=== PATIENT | female | born 1935 | race Caucasian/White ===

== ENCOUNTER 2017-08-29 14:36 | Observation (INO) | payer MEDICARE ==
--- NOTE | 2017-08-29 16:17 | RAD ---
PORTABLE CHEST: HISTORY: Vertigo. COMPARISON: 04/26/16. FINDINGS: Lungs appear clear. There are scattered calcified granuloma again noted. Heart size upper normal an d stable. Vascular markings within normal range. Evidence of COPD with mild hyperexpansion. IMPRESSION: No evidence of acute process. Stable chest findings from prior exam. POS: [facility]
[2017-08-29 16:29] LABS: Bilirubin Negative (Negative); Blood, Urine Negative (Negative); Glucose, Urine (Dipstick) Negative (Negative); Ketone, Urine Negative (Negative); Nitrite Negative (Negative); Protein, Urine (Dipstick) Negative (Neg-Trace); Urobilinogen 0.2 mg/dL (0.2-1.0)
[2017-08-29 16:30] LABS: #Eosinphils 0.1 thou/uL (0.0-0.7); #Lymphocytes 2.7 thou/uL (1.20-3.40); #Monocytes 0.6 thou/uL (0.11-0.59); #Neutrophils 4.5 thou/uL (1.40-6.50); %Basophils 0.4 % (0.0-1.0); %Eosinophils 1.5 % (0.0-10.0); %Lymphocytes 34.1 % (21.0-51.0); %Monocytes 7.1 % (0.0-10.0); Hematocrit 43.5 % (36.0-47.0); Mean Platelet Volume 7.3 fL (7.4-10.4); Red Blood Cell (RBC) Count 4.65 mill/uL (4.20-5.40); White Blood Cell (WBC) Count 7.8 thou/uL (4.8-10.8)
[2017-08-29 16:30] LABS: Bacteria/HPF None Seen HPF (None Seen); Hyaline Casts/LPF 0-3 HYALINE CAST LPF (0-3 Hyaline); RBC/HPF 0-3 HPF (0-3); Squamous Epithelial 0-3 HPF (0-3)
[2017-08-29 16:50] LABS: ALT (SGPT) 12 U/L (8-55); AST (SGOT) 20 U/L (5-34); Alkaline Phosphatase 73 U/L (40-150); Anion Gap 15 mmol/L (10-20); BUN (Urea Nitrogen) 18 mg/dL (9.8-20.1); Bilirubin, Total 0.5 mg/dL (0.2-1.2); CK (CPK) 34 U/L (29-168); Calc. Creatinine Clearance 0 mL/min (70-130); Calcium 9.7 mg/dL (7.8-10.44); Carbon Dioxide 27 mmol/L (23-31); Chloride 103 mmol/L (98-107); Estimated GFR-MDRD 65; Protein, Total 8.1 g/dL (6.0-8.3)
[2017-08-29 16:54] LABS: Troponin I Less than 0.010 ng/mL (< 0.028)
[2017-08-29] MEDS ORDERED: hydrALAZINE 20 MG/ML VIAL ONE (17:39)
--- NOTE | 2017-08-29 19:52 | CT ---
CT BRAIN 08/29/17 HISTORY: Severe vertigo. Noncontrast enhanced CT images of the brain is obtained. The brain is unremarkable. No evidence of intracranial masses, hemorrhages, strokes or acute contusio ns seen. An old area of stroke is seen in the left basal ganglia. No other significant acute intracra nial abnormality seen. 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 No acute intracranial abnormality seen. POS: [facility]
[2017-08-29] MEDS ORDERED: Ondansetron HCl/PF 4 MG/2 ML Vial IVP PRN (20:34)
[2017-08-29] MEDS ORDERED: Acetaminophen 325 MG TAB PO PRN (20:34)
[2017-08-29] MEDS ORDERED: Ondansetron ODT 4 MG TAB SL PRN (20:34)
[2017-08-29] MEDS ORDERED: Sodium Chloride 0.9% 1,000 ML IV SCH ×2 (20:45→22:15)
--- NOTE | 2017-08-29 21:10 | PDOC.EVN ---
Event Note - Event Note Event Note: 612209 H&P Dictated 1. Vertigo 2. Nausea and vomiting 3. Hypothyroidism plan: see orders
[2017-08-29 21:11] VITALS: BMI 35.6
[2017-08-29] MEDS ORDERED: Meclizine HCl 25 MG TAB PO PRN (22:11)
[2017-08-29 23:57] LABS: Troponin I Less than 0.010 ng/mL (< 0.028)
--- NOTE | 2017-08-30 06:07 | HP ---
DATE OF ADMISSION: 08/29/2017 CHIEF COMPLAINT: Dizziness. HISTORY OF PRESENT ILLNESS: Patient is an 82-year-old female with past medical history of hypothyroi dism, , complaining of dizziness, dizziness as if room spinning around. Patient's symptoms star rm all of sudden 3 days back. The patient said she was sleeping and she woke up to go to the restro om, she started feeling dizzy, possibly some nausea and vomiting also, denies any further nausea and vomiting, denies any chest pain, denies any troubled breathing, denies any weakness, complains of adrien e photophobia also. Denies any headache. Denies any lightheadedness. Dizziness is more like room s pinning around. PAST MEDICAL HISTORY: Hypothyroidism. PAST SURGICAL HISTORY: Appendectomy, eye surgery, tonsillectomy. SOCIAL HISTORY: Denies smoking, denies alcohol, denies any drugs. FAMILY HISTORY: Denies any heart problems. MEDICATIONS: Reviewed. REVIEW OF SYSTEMS: Constitutional: Denies any fever, denies any chills. Eyes: Denies any vision problems. Ears: Den ies any hearing loss. Neck: Denies any neck pain. Cardiovascular: Denies any chest pain, denies p alpitations. Respiratory: Denies any cough, denies sputum production. Gastrointestinal: Positive for nausea, vomiting. Musculoskeletal: Denies any joint deformities. Cranial nerve system: Positi ve for dizziness. Psychiatric: Denies anxiety. Integumentary: Denies any rash. Genitourinary: Denies dysuria. All other review of systems are reviewed and are negative. PHYSICAL EXAMINATION: CONSTITUTIONAL/VITAL SIGNS: At the time of H&P performed, blood pressure is stable, afebrile, respir ation rate 18. GENERAL: The patient appears comfortable. HEENT: Pupils equal, round, and reactive to light. Anterior nares patent. Nose normal. Ears albert l. Teeth intact. Tongue is moist. NECK: Supple. No JVD. CARDIOVASCULAR SYSTEM: S1, S2 present. Regular rate and rhythm, no murmurs, no rubs, no gallops. RESPIRATORY SYSTEM: No wheezing, no rhonchi. Breath sounds bilaterally. GASTROINTESTINAL: Abdomen is soft, nontender, no guarding, no organomegaly, no masses felt. MUSCULOSKELETAL: No edema. INTEGUMENTARY: No rashes seen. NEUROLOGIC: Cranial nerve system, able to perform alternate hand movements. Strength is intact, sen larry intact. Positive for decreased vision, which was chronic. PSYCHIATRIC: Mood is appropriate at this time. LABORATORY DATA: At the time of H&P performed white count 7.8, hemoglobin 14, platelet count is 285. BMP shows sodium 141, potassium 3.6, chloride 103, CO2 of 27, BUN of 18, creatinine 8.83, AST 20, A LT 12, alkaline phosphatase 73, troponin less than 0.010, globulin 4. EKG showed chest x-ray no obvi ous infiltrates seen. IMAGING: CT head, no obvious bleed, no acute process seen. ASSESSMENT AND PLAN: The patient is an 82-year-old female. 1. Vertigo, need to rule out any acute stroke. Plan to get MRI brain. Plan to consult Neurology to the patient. The patient had CT head done which showed old left basal ganglia stroke. We will get PT, OT also to evaluate the patient and we will monitor the patient. 2. History of hypertension. Continue Synthroid. 3. Nausea, vomiting, p.r.n. antiemetics. The case was discussed in detail with the patient and patient's daughter also.
[2017-08-30] MEDS ORDERED: FLU VACC TS2017-18 (>65YR) 0.5 ML SYRINGE IM ONE (09:00)
[2017-08-30] MEDS: Aspirin 81 mg Enteric Coated Tablet PO SCH (09:33)
[2017-08-30] MEDS: Heparin 5,000 UNITS/ML VIAL SC SCH ×2 (09:34→21:56)
--- NOTE | 2017-08-30 14:04 | PDOC.PN ---
- Subjective Encounter Start Date: 08/30/17 Encounter Start Time: 14:01 Subjective: feels better. no more dizziness -: no nausea/vomiting/chest pain/SOB -: refused MRI d/t claustrophobia - Objective MAR Reviewed: Yes Vital Signs & Weight: Vital Signs (12 hours) Temp Pulse Pulse Pulse Pulse Resp BP 08/30/17 11:35 97.4 F L 77 18 08/30/17 11:25 75 84 151/63 H 08/30/17 10:58 75 77 84 151/63 H 08/30/17 08:30 98.3 F 72 20 08/30/17 03:53 98.3 F 72 20 BP BP BP Pulse Ox 08/30/17 11:35 180/73 H 96 08/30/17 11:25 189/98 H 08/30/17 10:58 206/81 H 189/98 H 08/30/17 08:30 08/30/17 03:53 169/71 H 92 L Weight Weight 195 lb 3.2 oz I&O: 08/29/17 08/30/17 08/31/17 06:59 06:59 06:59 Intake Total 931 240 Balance 931 240 Result Diagrams: 08/29/17 16:18 08/29/17 16:18 Additional Labs: Laboratory Tests 08/29/17 08/29/17 08/29/17 16:18 19:34 22:08 Troponin I Less than 0.010 0.010 Less than 0.010 TSH 3rd Generation 08/30/17 16:18 Troponin I TSH 3rd Generation 0.2092 L Radiology Reviewed by me: Yes (Brain CT-old stroke) Phys Exam - Physical Examination Constitutional: NAD HEENT: PERRLA, moist MMs, sclera anicteric, oral pharynx no lesions Neck: no nodes, no JVD, supple, full ROM Respiratory: no wheezing, no rales, no rhonchi, clear to auscultation bilateral Cardiovascular: RRR, no significant murmur Gastrointestinal: soft, non-tender, no distention, positive bowel sounds Musculoskeletal: no edema, pulses present Neurological: non-focal, normal sensation, moves all 4 limbs Psychiatric: normal affect, A&O x 3 Skin: no rash Dx/Plan (1) Hypertensive urgency Code(s): I16.0 - HYPERTENSIVE URGENCY Status: Acute (2) Dizziness and giddiness Code(s): R42 - DIZZINESS AND GIDDINESS Status: Acute (3) Nausea Code(s): R11.0 - NAUSEA Status: Acute (4) UTI (urinary tract infection) Status: Suspected Qualifiers: Hematuria presence: without hematuria (5) Hypothyroid Code(s): E03.9 - HYPOTHYROIDISM, UNSPECIFIED Status: Acute - Plan PT/OT, out of bed/ambulate, DVT proph w/SCDs Cancel mri as pt refusing.neurological exam normal.stroke less likley -: add empiric ABx. obtain urine Cx. -: ECHO,carotid US & neurology consult pending. -: likley Home later today w if work up negative. -: hemodynamically stable .confirm levothyroxine dose from home * .Add low dose BB as BP remains high. no home meds.monitor. * may need to stay overnight if Bp not under better control Review of Systems - Review of Systems Constitutional: Weakness. negative: Fever, Chills, Sweats, Malaise, Other Respiratory: negative: Cough, Dry, Shortness of Breath, Hemoptysis, SOB with Excertion, Pleuritic Pain, Sputum, Wheezing Cardiovascular: negative: Chest Pain, Palpitations, Orthopnea, Paroxysmal Noc. Dyspnea, Edema, Light Headedness, Other Gastrointestinal: negative: Nausea, Vomiting, Abdominal Pain, Diarrhea, Constipation, Melena, Hematochezia, Other Genitourinary: negative: Dysuria, Frequency, Incontinence, Hematuria, Retention , Other Musculoskeletal: negative: Neck Pain, Shoulder Pain, Arm Pain, Back Pain, Hand Pain, Leg Pain, Foot Pain, Other Neurological: negative: Weakness, Numbness, Incoordination, Change in Speech, Confusion, Seizures, Other - Medications/Allergies Allergies/Adverse Reactions: Allergies Allergy/AdvReac Type Severity Reaction Status Date / Time No Known Drug Allergies Allergy Verified 08/30/17 07:21 Medications: Current Medications Aspirin (Ecotrin) 81 mg PO DAILY [facility] Last Admin: 08/30/17 09:33 Dose: 81 mg Atorvastatin Calcium (Lipitor) 40 mg PO [facility] Heparin Sodium (Porcine) (Heparin) 5,000 units SC Q12HR [facility] Last Admin: 08/30/17 09:34 Dose: 5,000 units Sodium Chloride (Normal Saline 0.9%) 1,000 mls @ 50 mls/hr IV .Q20H [facility] Last Admin: 08/30/17 10:41 Dose: 1,000 mls Ceftriaxone Sodium 2 gm/ (Sodium Chloride) 100 mls @ 200 mls/hr IVPB ONE [facility] Levothyroxine Sodium (Synthroid) 175 mcg PO 0600 [facility] Meclizine HCl (Antivert) 25 mg PO Q8H PRN PRN Reason: Dizziness Ondansetron HCl (Zofran) 4 mg IVP Q6H PRN PRN Reason: Nausea/Vomiting Stop: 09/03/17 05:25 Sodium Chloride (Flush - Normal Saline) 10 ml IVF Q12HR [facility] Last Admin: 08/30/17 09:33 Dose: 10 ml Sodium Chloride (Flush - Normal Saline) 10 ml IVF PRN PRN PRN Reason: Saline Flush
[2017-08-30] MEDS ORDERED: cefTRIAXone\\ROCEPHIN 2 GM in Sodium Chloride 0.9% 100 ML IVPB SCH (14:15)
[2017-08-30] MEDS ORDERED: Metoprolol Tartrate 25 MG TAB PO SCH (14:15)
--- NOTE | 2017-08-30 16:55 | ULT ---
BILATERAL CAROTID DUPLEX ULTRASOUND WITH SPECTRAL ANALYSIS AND COLOR FLOW EVALUATION 08/30/17 HISTORY: Severe vertigo. CVA/TIA. FINDINGS: Fam scale, color flow, doppler evaluation, with spectral analysis of the bilateral carotid arteries is performed with 2D imaging. There is calcified atherosclerotic plaque seen in the region of the srinivasan ateral carotid bulbs and involving the internal carotid arteries bilaterally. There is severe (greate r than 70%) stenosis involving the right internal carotid artery based on a peak systolic velocity of 246.4 cm/s and an ICA/CCA ratio of 2.26. There is mild moderate (50-69%) stenosis involving the left internal carotid artery based on a peak s ystolic velocity of 144 cm/s. Left ICA/CCA ratio is 1.1. Antegrade flow is demonstrated in the vertebral arteries bilaterally. IMPRESSION: 1. Severe (greater than 70%) stenosis involving the right internal carotid artery. 2. Moderate (50-69%) stenosis involving the left internal carotid artery. 3. Calcified atherosclerotic plaque in the carotid arteries bilaterally. 4. Findings suggestive of significant stenoses in each external carotid artery based on elevated peak systolic velocities. POS: [facility]
--- NOTE | 2017-08-30 18:39 | CON ---
DATE OF CONSULTATION: 08/30/2017 REFERRING PROVIDER: Mike Godfrey MD REASON FOR CONSULTATION: Dizziness. HISTORY OF PRESENT ILLNESS: Ms. Dobbs is a pleasant 82-year-old female who has been consu lted for evaluation of dizziness. The patient reports that on Monday morning around 3:00 a.m., she w tiara up to go to the bathroom when she sat up onto the side of the bed, she had severe dizziness and v ertigo-type sensation where she felt everything was spinning. She became nauseated. She was able to go to the bathroom by holding onto something where she had vomiting episode. She then had gone to s it on her sofa and slept over there on her recliner seat. The next day, she continued to have interm ittent episodes of dizziness and vertigo. On Monday, she had episodes of dizziness and vertigo. The y were intermittent and lasting short duration and these episodes were happening only when she was mo ving her head, as long as she stayed still, she did not have any episodes of dizziness. She noted th at dizziness was much worse when she was lying supine and though she had to lay on in recliner: On morning when she woke up, she did extremely well and did not have any dizziness or vertigo jorge t sensation, was doing her daily activities; however, during afternoon, she again developed dizziness and vertigo sensation which prompted her to presented to the [facility] for further e valuation. She notes that her dizziness is much better today. She denies any headache, chest pain, palpitation, numbness, tingling or weakness. She is legally blind in both eyes. PAST MEDICAL HISTORY: Significant for hypothyroidism, legally blind in both eyes. PAST SURGICAL HISTORY: Significant for appendectomy, eye surgery, and tonsillectomy. SOCIAL HISTORY: She denies smoking, alcohol use, or illicit drug use. She is currently living with her daughter. FAMILY HISTORY: Noncontributory. CURRENT MEDICATIONS: Please review MAR. ALLERGIES: No known drug allergies. REVIEW OF SYSTEMS: As mentioned in the HPI, otherwise negative. PHYSICAL EXAMINATION: VITAL SIGNS: Blood pressure of 129/60, pulse of 63, temperature of 97.7, respirations of 20, O2 sats of 96% on room air. GENERAL: Well-developed, well-nourished female, in no apparent distress. RESPIRATORY: Clear to auscultation bilaterally. CARDIOVASCULAR: Regular rate and rhythm. NEUROLOGIC: Mental status: The patient is awake, alert, oriented x3. Speech and language: Fluent speech. Cranial nerves: Pupils are 3 mm and reactive. She is legally blind in both eyes. External muscles are intact. No nystagmus is noted. Face is symmetric. Tongue and uvula are midline. Galileo r exam showed normal tone and bulk with a 5/5 strength in upper and lower extremities. Sensory: Sen sation is intact and symmetric. Deep tendon reflexes 1-2+ reflexes in both upper and lower extremiti es. Babinski: Plantar responses flexion bilaterally. Coordination intact to [id number] and finger tapping bilaterally. LABORATORY DATA: Reviewed, which included CBC, CMP, TSH, lipid profile, and urinalysis, which is sig nificant for a TSH of 0.2092, total cholesterol of 195, LDL of 123, triglycerides of 103, HDL of 51. Urinalysis showed 11-20 WBC with moderate leukocyte esterase, otherwise unremarkable. IMAGING STUDIES: CT head without contrast was reviewed which showed no acute intracranial abnormalit y. Carotid Doppler results were reviewed, which showed greater than 70% stenosis involving the right internal carotid artery and 50-69% stenosis involving the left internal carotid artery. Echocardiog loulou results were reviewed, which showed EF of 55-60% with mild left ventricular hypertrophy and moder ately thickened aortic valve and moderate aortic stenosis, otherwise unremarkable. IMPRESSION: 1. Dizziness, likely positional vertigo. 2. Carotid artery stenosis. 3. Moderate aortic valve stenosis. ASSESSMENT AND PLAN: Ms. Dobbs is a pleasant 82-year-old female who presented with the ep isodes of dizziness and vertigo. Based on the description, these are likely benign positional vertig o. She did have a carotid Dopplers done which showed high grade stenosis involving the right ICA and moderate stenosis involving the left ICA. At this time, I would recommend obtaining CT angiogram of the neck and consulting the Cardiovascular Surgery for further evaluation. I would recommend starti ng patient on aspirin 81 mg daily for secondary stroke prevention. Patient may benefit from outpatie nt dizzy and balance therapy.
[2017-08-30] MEDS ORDERED: Atorvastatin Calcium 40 MG TAB PO SCH (21:00)
[2017-08-30] MEDS: Metoprolol Tartrate 25 MG TAB PO SCH (21:56)
[2017-08-31] MEDS ORDERED: Levothyroxine 175 MCG TAB PO SCH (06:00)
[2017-08-31] MEDS: Metoprolol Tartrate 25 MG TAB PO SCH (08:18)
[2017-08-31] MEDS: Heparin 5,000 UNITS/ML VIAL SC SCH (08:19)
[2017-08-31] MEDS: Aspirin 81 mg Enteric Coated Tablet PO SCH (08:19)
[2017-08-31] MEDS ORDERED: cefTRIAXone\\ROCEPHIN 1 GM in Sodium Chloride 0.9% 100 ML IVPB SCH (08:45)
[2017-08-31] MEDS ORDERED: cefTRIAXone\\ROCEPHIN 1 GM, Syringe 0.4 ML in Sterile Water 9.6 ML SLOW IVP SCH (10:00)
--- NOTE | 2017-08-31 11:16 | CT ---
CT ANGIO OF NECK: TECHNIQUE: Multiple axial tomograms were obtained through the neck with arterial phase enhancement following ang io protocol with multiplanar reconstruction and 3D postprocessing. HISTORY: Exam is performed in followup of carotid Doppler study performed 08/30/17 which showed single increme nt stenosis in the right internal carotid artery and moderate stenosis in the left internal carotid a rtery. FINDINGS: Mild atherosclerotic calcification seen at the aortic arch. No evidence of significant stenosis at t he origin of the innominate artery or left common carotid artery. There is diffuse calcified plaque and evidence of significant stenosis at the origin of the left subc lavian artery at the arch. The common carotid shows mild atherosclerotic change, but no significant stenosis. At the bifurcation, there is calcified plaque and soft plaque present. This does result in moderate stenosis at the proximal right internal carotid artery estimated at 50% diameter stenosis by NASCET c riteria. The right ICA above the bifurcation is unremarkable. Left common carotid shows mild atherosclerotic change with no significant stenosis. There is calcified plaque at the left bulb and proximal left ICA. This results in only mild stenosis at the origin of the left ICA which does not appear to be hemodynamically significant by NASCT crite thong. The left ICA above the bulb is unremarkable. Vertebral arteries are patent and unremarkable. Review of soft tissues reveals a suspicious mass in the medial left upper lobe measuring up to 1.7 cm AP dimension in the axial plane. In addition, there is a nodular area of apical pleural thickening in the left apex measuring approximately 8-10 mm and there is another small nodular density in the mi d right upper lobe measuring 0.7 cm. IMPRESSION: 1. Evidence of hemodynamically significant stenosis at the origin of the right internal carotid yair ry estimated at approximately 50% diameter stenosis by NASCET criteria. 2. No evidence of hemodynamically significant stenosis at the origin of the left internal carotid ar zen by NASCET criteria. 3. There is a suspicious mass in the left upper lobe medially measuring up to 1.7 cm. There are oth er nodular densities seen in the upper lung ibrahim as described above. Recommend dedicated CT scan f or further evaluation. Findings relayed to Dr. Olson POS: [facility]
[2017-08-31] MEDS ORDERED: hydrALAZINE 20 MG/ML VIAL SLOW IVP PRN (12:03)
[2017-08-31] MEDS ORDERED: cloNIDine 0.1 MG TAB PO PRN (12:03)
--- NOTE | 2017-08-31 12:59 | PDOC.PN ---
- Subjective Encounter Start Date: 08/31/17 Encounter Start Time: 12:58 Subjective: feels well. no more dizziness -: care discussed with daughter on phone - Objective MAR Reviewed: Yes Vital Signs & Weight: Vital Signs (12 hours) Temp Pulse Resp BP BP Pulse Ox 08/31/17 11:27 98.6 F 66 16 190/77 H 96 08/31/17 08:00 97.8 F 65 18 145/74 H 139/64 95 08/31/17 03:55 98.5 F 63 20 144/76 H 97 Weight Weight 193 lb 4.8 oz I&O: 08/30/17 08/31/17 09/01/17 06:59 06:59 06:59 Intake Total 931 1020 Balance 931 1020 Result Diagrams: 08/29/17 16:18 08/29/17 16:18 Additional Labs: Accuchecks 08/31/17 09:43 POC Glucose 92 Radiology Reviewed by me: Yes (CTA- Moderat eR ICA stenosis.) Phys Exam - Physical Examination Constitutional: NAD HEENT: PERRLA, moist MMs, sclera anicteric, oral pharynx no lesions Neck: no nodes, no JVD, supple, full ROM Respiratory: no wheezing, no rales, no rhonchi, clear to auscultation bilateral Cardiovascular: RRR, no significant murmur Gastrointestinal: soft, non-tender, no distention, positive bowel sounds Musculoskeletal: no edema, pulses present Neurological: non-focal, normal sensation, moves all 4 limbs Psychiatric: normal affect, A&O x 3 Skin: no rash Dx/Plan (1) Hypertensive urgency Code(s): I16.0 - HYPERTENSIVE URGENCY Status: Resolved (2) Dizziness and giddiness Code(s): R42 - DIZZINESS AND GIDDINESS Status: Resolved (3) Nausea Code(s): R11.0 - NAUSEA Status: Resolved (4) UTI (urinary tract infection) Status: Suspected Qualifiers: Hematuria presence: without hematuria (5) Hypothyroid Code(s): E03.9 - HYPOTHYROIDISM, UNSPECIFIED Status: Acute - Plan PT/OT, incentive spirometry, out of bed/ambulate, DVT proph w/SCDs cont rocephin for now. Cx pending for urine -: Consult [facility] as per my discussion with family. -: incidental finding of lung Mass in CT.Op f/u -: BP improved w adding BB.add prn metoprolol -: cont ASA,statin.MRI c/n/b done as pt claustrophobic * .DC home if no carotid Sx planned.family wants to go ahead if recommended Review of Systems - Review of Systems Constitutional: Weakness. negative: Fever, Chills, Sweats, Malaise, Other Respiratory: negative: Cough, Dry, Shortness of Breath, Hemoptysis, SOB with Excertion, Pleuritic Pain, Sputum, Wheezing Cardiovascular: negative: Chest Pain, Palpitations, Orthopnea, Paroxysmal Noc. Dyspnea, Edema, Light Headedness, Other Gastrointestinal: negative: Nausea, Vomiting, Abdominal Pain, Diarrhea, Constipation, Melena, Hematochezia, Other Genitourinary: negative: Dysuria, Frequency, Incontinence, Hematuria, Retention , Other Musculoskeletal: negative: Neck Pain, Shoulder Pain, Arm Pain, Back Pain, Hand Pain, Leg Pain, Foot Pain, Other Neurological: negative: Weakness, Numbness, Incoordination, Change in Speech, Confusion, Seizures, Other - Medications/Allergies Allergies/Adverse Reactions: Allergies Allergy/AdvReac Type Severity Reaction Status Date / Time No Known Drug Allergies Allergy Verified 08/30/17 07:21 Medications: Current Medications Aspirin (Ecotrin) 81 mg PO DAILY [facility] Last Admin: 08/31/17 08:19 Dose: 81 mg Atorvastatin Calcium (Lipitor) 40 mg PO HS [facility] Last Admin: 08/30/17 21:55 Dose: 40 mg Clonidine (Catapres) 0.1 mg PO Q4H PRN PRN Reason: SBP>160 Heparin Sodium (Porcine) (Heparin) 5,000 units SC Q12HR [facility] Last Admin: 08/31/17 08:19 Dose: 5,000 units Hydralazine HCl (Apresoline) 10 mg SLOW IVP Q4H PRN PRN Reason: SBP>170 Ceftriaxone Sodium 1 gm/ (Syringe 0.4 ml/ Sterile Water) 10 mls @ 120 mls/hr SLOW IVP 1000 [facility] Last Admin: 08/31/17 10:31 Dose: 10 mls Levothyroxine Sodium (Synthroid) 175 mcg PO 0600 [facility] Last Admin: 08/31/17 05:18 Dose: 175 mcg Meclizine HCl (Antivert) 25 mg PO Q8H PRN PRN Reason: Dizziness Metoprolol Tartrate (Lopressor) 12.5 mg PO BID [facility] Last Admin: 08/31/17 08:18 Dose: 12.5 mg Ondansetron HCl (Zofran) 4 mg IVP Q6H PRN PRN Reason: Nausea/Vomiting Stop: 09/03/17 05:25 Sodium Chloride (Flush - Normal Saline) 10 ml IVF Q12HR [facility] Last Admin: 08/31/17 08:20 Dose: 10 ml Sodium Chloride (Flush - Normal Saline) 10 ml IVF PRN PRN PRN Reason: Saline Flush
[2017-08-31 15:38] VITALS: BP 154/66; TEMP 97.7
--- NOTE | 2017-08-31 18:41 | CON ---
DATE OF CONSULTATION: 08/31/2017 REASON FOR CONSULTATION: Carotid artery evaluation. PERTINENT HISTORY: The patient is an 82-year-old female who presented following a 3-day history of d izziness with associated nausea. Upon presentation, she was found to be markedly hypertensive. She had a similar episode approximately one year ago which persisted for days, but did resolve spontaneou sly. She has no prior documented history of TIA or CVA. Current dizzy episode did not involve any l ateralizing signs. She has been seen by Neurology on this admission and is felt to have positional v ertigo. Workup has included the following studies. Noncontrast CT scan of the brain showed no acute abnormalities. Transthoracic echo demonstrated preserved left ventricular function with ejection fr action of 55-60%, moderate aortic stenosis, moderate mitral regurgitation, and significant mitral anabelle ular calcification. Carotid ultrasound was suggestive of a severe right ICA stenosis based on peak s ystolic velocity of 247 and moderate left ICA velocity based on peak systolic velocity of 144. Carot id CTA, however, demonstrated the right ICA stenosis to be only approximately 50% with very mild degr ee of stenosis involving the left ICA. The carotid CTA did incidentally demonstrate a 1.7 cm left up per lobe noncalcified mass. The patient is a prior smoker, having quit in the mid 70s. PAST MEDICAL HISTORY: 1. Hypothyroidism. 2. Hypertension for which she is largely noncompliant. 3. Dyslipidemia for which she is largely noncompliant. 4. Legally blind each eye. PAST SURGICAL HISTORY: 1. Tonsillectomy. 2. Appendectomy. 3. Bilateral retinal operations. ALLERGIES: None. SOCIAL HISTORY: Former smoker, however, quit in the mid 70s. Nondrinker. FAMILY HISTORY: Noncontributory for stroke. CURRENT MEDICATIONS: Aspirin 81 mg daily, Lipitor 40 mg daily, ceftriaxone 1 gram IV daily, heparin subcu 5000 units q.12 hours, Synthroid 175 mcg daily, meclizine 25 mg q.8 hours p.r.n., Lopressor 12. 5 mg b.i.d., and multiple other p.r.n. medications. LABORATORY AND X-RAY: White blood cell count 7.8. Hemoglobin 14.0. Platelet count 285,000. Creati nine 0.83. Troponin I's were normal. PHYSICAL EXAMINATION: VITAL SIGNS: Height 5 feet 2 inches, weight 193 pounds, blood pressure 154/66, heart rate 66, temper ature 97.7. GENERAL: Obese female in no acute distress. She is fully oriented. HEENT: Grossly unremarkable. NECK: Without JVD or adenopathy. LUNGS: Clear with good inspiratory effort. HEART: Regular rate and rhythm with soft systolic ejection murmur best heard in the right upper ster nal border. ABDOMEN: Soft and nontender, without palpable mass. EXTREMITIES: Without appreciable edema. VASCULAR: Palpable radial, femoral, and ankle pulses bilaterally. She does have a right carotid bru it. Abdominal aorta is nonpalpable. NEUROLOGIC: No focal deficits. IMPRESSION: 1. Asymptomatic, bilateral carotid artery disease as described on the above carotid CTA. 2. Left upper lobe mass as described on above carotid CTA. RECOMMENDATIONS: 1. Followup visit with repeat carotid ultrasound in my office in 6 months. Continue antiplatelet th erapy with aspirin. 2. Pulmonary consultation for the left upper lobe mass.
--- NOTE | 2017-09-01 00:23 | DIS ---
DATE OF ADMISSION: 08/29/2017 DATE OF DISCHARGE: 08/31/2017 CONDITION AT THE TIME OF DISCHARGE: Stable and improved. DISCHARGE DIAGNOSES: 1. Dizziness of unclear etiology. It was thought due to be secondary to either a transient ischemic attack versus hypertensive urgency. 2. Hypertensive urgency. 3. Nausea. 4. Urinary tract infection. 5. Hypothyroidism. 6. Moderate carotid artery stenosis. DISCHARGE MEDICATIONS: Metoprolol tartrate 12.5 mg p.o. b.i.d., Omnicef 300 mg p.o. b.i.d. for 5 mor e days, Lipitor 10 mg daily, aspirin 81 mg daily. CONSULTATIONS: 1. In-house Neurology, Dr. Soo Smith. 2. Vascular Surgery, Dr. Adkins. PROCEDURES DONE AT THE HOSPITAL: Include, 1. 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 2. Transthoracic echocardiogram, which shows findings of EF of 55-60% with moderate left ventricular hypertrophy and moderate aortic stenosis. 3. [id number] mitral regurgitation. 4. Carotid Doppler ultrasound, which showed severe stenosis of the right ICA and moderate stenosis o f the left ICA. 5. CT angio of the neck, which shows right internal carotid artery stenosis approximately 50% and no stenosis of the left internal carotid artery. It did have an incidental finding of suspicious mass in the left upper lung lobe medially measuring up to 1.7 cm. HISTORY OF PRESENTING ILLNESS: Ms. Dobbs is a very pleasant 82-year-old female with a past medical history only of hypothyroidism, who presented to the ER with complaints of severe dizziness on and of f for the last 3 days. She was hemodynamically stable upon presentation. Her blood work was unremar kable. Cardiac enzymes were normal. EKG was normal. Chest x-ray was without any infiltrate. CT sc an of the head was unremarkable as well. She was admitted to the stroke floor for further workup. Benoit monroe see admission history and physical for further details. HOSPITAL COURSE: The patient was admitted on the stroke floor and had spontaneous resolution of her symptoms after some IV fluids. Stroke workup was initiated, but the patient refused MRI because she was severely claustrophobic. She was given options to use it with the anti-anxiety medications, but she still refused. Carotid Doppler and echocardiogram were obtained with the above-mentioned results . Carotid Doppler showed some right-sided internal carotid artery stenosis for which a CT angio was done, which showed only moderate 50% stenosis. She was seen by Neurology, Dr. Soo Smith, who agreed with continuation of aspirin and statin as it i s not clear whether her symptoms are because of TIA versus hypertensive urgency, which she presented with. She was started on metoprolol b.i.d. for this reason and her blood pressure improved significa ntly. Because of the ultrasound and CT angio results, Vascular Surgery was consulted in-house. Dr. Adkins saw the patient and reviewed the results. At this time, he is not planning on the further interventi on. During the CT angio of the neck, there was an incidental finding of a lung nodule in the left side as mentioned above. I contacted the patient's daughter, Ms. Vazquez, and discussed this finding with her . At this time, the patient is stable and can follow up as an outpatient with Pulmonary Medicine wit h a dedicated CT scan of the chest. At this time, I am choosing not to do it as the patient has rece ived significant amount of contrast already today for CT angio. Once again, the daughter understands the meaning of this finding that it can be malignancy and would follow up with outpatient Pulmonary Medicine. A referral for Dr. Mcallister was provided to them. The patient was seen and examined prior to discharge. Please see hospitalist's progress note from to day's date for further details including [id number] interaction. The patient was seen by the stroke team including OT, PT, and speech therapist. She was cleared by a ll of them. She was given outpatient rehab referral for dizzy and balance program. PRIMARY CARE PHYSICIAN: Hermelindo De La Fuente D.O. Discharge plans were discussed with the patient and her daughter who verbalized understanding. She w ill follow up with primary care physician in 1-2 weeks, as well as Pulmonary Medicine in 3-4 weeks an d Cardiovascular Surgery in 5-6 months. TOTAL TIME SPENT: 32 minutes.
--- NOTE | 2017-09-01 01:25 | CON ---
DATE OF CONSULTATION: 08/31/2017 SERVICE: Pulmonary Medicine. REASON FOR CONSULTATION: Pulmonary nodule. HISTORY OF PRESENT ILLNESS: The patient is an 82-year-old white female with past medical history significant for presentation to the hospital for vertiginous symptoms. During the workup for that, this revealed that she had a 1.8 cm pulmonary nodule. This had never been evaluated before or assessed. This was an incidental finding. In no way, is it related to why she came into the hospital. She denies any current fevers, chills, nausea, vomiting, hemoptysis, weight changes or night sweats. Otherwise, she is in her usual state of health. She is being considered for discharge today and I am here to basically set her up for followup regarding this pulmonary nodule. PAST MEDICAL HISTORY: Hypothyroidism. PAST SURGICAL HISTORY: 1. Appendectomy. 2. Eye surgery. 3. Tonsillectomy. SOCIAL HISTORY: Negative for alcohol, tobacco or illicit drug use. She has about a [id number] history of smoking, but quit in 1978. She denies any exposure to chemicals, dust asbestos or tuberculosis. FAMILY HISTORY: Noncontributory. ALLERGIES: No known drug allergies. MEDICATIONS: List of her inpatient medications and outpatient medicines were reviewed. No updates were made at this time. REVIEW OF SYSTEMS: General, head, ears, eyes, nose, throat, cardiovascular, respiratory, GI, , musculoskeletal, neurologic and skin is negative except as mentioned in the HPI. PHYSICAL EXAMINATION: VITAL SIGNS: Afebrile, pulse 66, blood pressure 154/66, respirations 22 and saturation 95% on room air. GENERAL: The patient is awake and alert, in no apparent distress. HEENT: Normocephalic and atraumatic. Sclerae are white, conjunctivae pink. Oral and nasal mucosa is moist without lesions. NECK: There is no cervical lymphadenopathy. LUNGS: Excellent air entry. There is a slightly prolonged expiratory phase, but I do not hear any adventitious sounds to include the wheezing, rhonchi or crackles. HEART: Normal rate and regular. ABDOMEN: Soft, nontender and nondistended. Bowel sounds are positive. MUSCULOSKELETAL: No cyanosis or clubbing. No pitting in the bilateral lower extremities. NEUROLOGIC: Grossly nonfocal. IMAGING DATA: 1. CT of the brain demonstrates no acute intracranial abnormality. She has an old left basal ganglia stroke. 2. Chest x-ray demonstrates no evidence of acute cardiopulmonary abnormality. There are scattered calcified granuloma. The pulmonary nodule identified on the CT scan is hidden by a cardiac silhouette here. 3. Ultrasound of the bilateral neck demonstrates severe stenosis involving the right ICA. There is moderate stenosis of the left ICA. 4. Echocardiogram demonstrates a normal ejection fraction. She has got a mild diastology. Left atrium is a little dilated. Moderate aortic stenosis. 5. CTA of the neck demonstrates hemodynamically significant stenosis at the origin of the right internal carotid artery estimated at 50% diameter stenosis. No evidence of hemodynamically significant stenosis in the origin of the left internal carotid artery. There is a 1.8 cm pulmonary nodule in the left lung anterior to the heart. There is a contralateral 7 mm triangular shaped lymph node in an expected region on the pulmonary lymph node. ASSESSMENT: 1. Pulmonary nodule. 2. History of granulomatous lung disease as evidenced on chest x-ray. 3. Dyspnea on exertion. PLAN: At this point, we are dealing with an incidental nodule in a fairly low risk profile patient. It does have greater than 5% chance of being malignant, but not by much. Technically, a biopsy should be entertained. That being said , it is located close to the aorta and would be difficult to assess from a transcutaneous route. I certainly can get to it from a bronchoscopy. Open lung biopsy in my opinion in this 82-year-old is out of the question. As such, we will do is elect to follow this thing. I did discuss the risks and benefits of moving forward with all of these different options with the patient and she is agreeable to the plan moving forward. At this point, we will do a follow up CT scan in 3 months. In the outpatient setting, I will determine whether or not she has any significant obstructive lung disease that may benefit from therapy as she does have some dyspnea that prevents her from doing everything she wants to do. BREEZY
--- NOTE | 2017-09-09 14:32 | EKG ---
Test Reason : Blood Pressure : / mmHG Vent. Rate : 084 BPM Atrial Rate : 084 BPM P-R Int : 140 ms QRS Dur : 136 ms QT Int : 460 ms P-R-T Axes : 064 050 042 degrees QTc Int : 543 ms Normal sinus rhythm Right bundle branch block Abnormal ECG Confirmed by DEVIN ROE DO ([id number]), manuscript editor KELVIN FELDER ([id number]) on 09/09/2017 2:32:01 PM Referred By: Confirmed By:DEVIN ROE DO
== END 2017-08-31 18:12 | disposition home or self-care (01) ==
LOC: ERS 14:36 → 2SE 17:59 → INTOOBSV 08-30 14:56 → OBSVTOIN 08-30 14:56
PROVIDERS: ADMIT Internal Medicine Infectious Disease; ATTEND Internal Medicine Infectious Disease
DX: R42 Dizziness and giddiness (principal); I16.0 Hypertensive urgency; R11.0 Nausea; I10 Essential (primary) hypertension; N39.0 Urinary tract infection, site not specified; E03.9 Hypothyroidism, unspecified; I65.29 Occlusion and stenosis of unspecified carotid artery; E78.5 Hyperlipidemia, unspecified; Z79.82 Long term (current) use of aspirin; Z79.899 Other long term (current) drug therapy; Z90.49 Acquired absence of other specified parts of digestive tract; Z98.890 Other specified postprocedural states; Z86.73 Personal history of transient ischemic attack (TIA), and cerebral infarction without residual deficits; Z87.891 Personal history of nicotine dependence; I65.21 Occlusion and stenosis of right carotid artery
CPT/HCPCS: 70450; 70498; 71010; 80053; 80061; 82550; 82553; 82962; 84443; 84484 ×2; 85025; 87086; 93005; 93306; 93880; 94760; 96361 ×2; 96365; 96375; 97139 ×7; 97535; 99291; G0008; G0378; G8978; G8979; G8980; G8987; G8988; G8989; Q2036; 36415; 36416; 81003; 81015; 90471; 90682; 96374; A4216; G8996-GN-CH; G8997-GN-CH; J0360; J0696; J1644; J7050

== ENCOUNTER 2017-12-12 09:51 | Outpatient (CLI) | payer MEDICARE ==
--- NOTE | 2017-12-12 12:56 | CT ---
CT OF THE THORAX WITH IV CONTRAST: Indication: Mass identified on the CTA of the neck on 08-31-17 within the left upper lobe. Comparison: No CT thorax comparisons are available. FINDINGS: Corresponding CT abnormal is seen on the CT of the neck dated 08-31-17 from [facility] deepti is a 1.5 x 2.0 x 1.5 cm spiculated nodule involving the anterior and medial aspect of the left up per lobe abutting the mediastinal margin, just at the level of the left brachiocephalic vein. There i s an additional 9 mm pulmonary nodule left upper lobe, image 26 of series 3. There is a 7 mm pulmonar y nodule right upper lobe on image 27 of series 3. There is scattered centrilobular and paraseptal emphysema. There is an scattered calcified granuloma. There is prominent mitral annular calcifications. There are coronary artery, thoracic aorta calcific ations. No pathologically enlarged lymph nodes are grossly evident. There are calcified lymph nodes w ithin the hilar regions. Visualized adrenal glands are normal appearing. There is scattered degenerative and osteoarthritic change. No suspicious osteolytic or osteoblastic l esions identified. IMPRESSION: 1. Suspicious 2 cm pulmonary nodule within the left upper lobe abutting the mediastinum. The position ing of this nodule would be percutaneous sampling extremely difficult. There are additional pulmonary nodules within both upper lobes. Further risk stratification is recommended with a PET CT evaluation . 2. Scattered emphysema. 3. Findings of prior granulomatous disease. Code T POS: [facility]
[2017-12-12] MEDS ORDERED: Iopamidol 370 76% 100 ML VIAL ONE (15:10)
== END 2017-12-12 09:52 | disposition home or self-care (01) ==
LOC: CT 09:51
PROVIDERS: ATTEND Internal Medicine
DX: R91.1 Solitary pulmonary nodule (principal); J43.9 Emphysema, unspecified
CPT/HCPCS: 71260; 82565

== ENCOUNTER 2017-12-27 16:37 | Emergency (ER) | payer MEDICARE ==
--- NOTE | 2017-12-27 17:35 | RAD ---
PORTABLE AP CHEST X-RAY 12/27/17 HISTORY: Abnormal EKG. Chest pain. COMPARISON: 08/29/17. FINDINGS: The cardiac silhouette is magnified by projection. Pulmonary vasculature is within normal limits. Aga in noted is evidence of prior granulomatous disease with multiple calcified granulomata seen bilatera lly. Lungs are otherwise clear. There is osteopenia with degenerative changes in the spine. Vascular calcifications in the thoracic aorta. IMPRESSION: Stable chest without evidence of an acute cardiopulmonary process. POS: [facility]
[2017-12-27 17:39] LABS: #Basophils 0.1 thou/uL (0.0-0.2); #Eosinphils 0.1 thou/uL (0.0-0.7); #Monocytes 0.6 thou/uL (0.11-0.59); #Neutrophils 4.7 thou/uL (1.40-6.50); %Basophils 0.8 % (0.0-1.0); %Eosinophils 1.5 % (0.0-10.0); %Lymphocytes 34.9 % (21.0-51.0); %Monocytes 7.3 % (0.0-10.0); %Neutrophils 55.5 % (42.0-75.0); Hemoglobin 13.1 g/dL (12.0-16.0); Mean Corpuscular Hemoglobin 30.4 pg (27.0-31.0); Mean Platelet Volume 7.6 fL (7.4-10.4); Platelet Count 246 thou/uL (130-400); White Blood Cell (WBC) Count 8.5 thou/uL (4.8-10.8)
[2017-12-27 17:45] LABS: INR-International Normal Ratio 1.1; PTT 24.5 SEC (22.9-36.1); Prothrombin Time 14.2 SEC (12.0-14.7)
[2017-12-27 18:06] LABS: CKMB 1.3 ng/mL (0-6.6); Troponin I Less than 0.010 ng/mL (< 0.028)
--- NOTE | 2017-12-27 19:15 | ULT ---
ULTRASOUND WITH DOPPLER DUPLEX VENOUS LOWER EXTREMITY BILATERAL CPT: 54498 ICD-10-PCS: B54D HISTORY: Pain and edema. TECHNIQUE: Color flow Doppler, spectral waveform analysis of pulsed Doppler, and rene-scale imaging with michell chilo and augmentation, were used to evaluate the bilateral common femoral, femoral, popliteal, snow removing supervisor ior tibial, and superficial femoral, veins; and the proximal portions of the profunda femoral and gre ater saphenous, veins. FINDINGS: Appropriate compressibility and flow within the imaged deep vein system of each lower extremity. There is a focus of decreased echogenicity, approximating 2 cm in diameter at the left popliteal susan a favoring a Richard's cyst. IMPRESSION: 1. No DVT. 2. Probable Richard's cyst of left popliteal fossa. Correlate clinically. POS: [facility]
== END 2017-12-27 20:40 | disposition home or self-care (01) ==
LOC: ERS 16:37
DX: R60.0 Localized edema (principal); E03.9 Hypothyroidism, unspecified; E78.00 Pure hypercholesterolemia, unspecified; I10 Essential (primary) hypertension; Z79.899 Other long term (current) drug therapy
CPT/HCPCS: 36415; 71045; 82553; 83735; 83880; 84484; 85025; 85610; 85730; 93005; 93970

== ENCOUNTER 2018-11-11 22:31 | Emergency (ER) | payer MEDICARE ==
[2018-11-11] MEDS ORDERED: Meclizine HCl 25 MG TAB ONE (23:08)
[2018-11-11 23:15] LABS: #Basophils 0.1 thou/uL (0.0-0.2); #Eosinphils 0.2 thou/uL (0.0-0.7); #Lymphocytes 4.4 thou/uL (1.20-3.40); #Monocytes 0.8 thou/uL (0.11-0.59); #Neutrophils 3.8 thou/uL (1.40-6.50); %Eosinophils 2.1 % (0.0-10.0); %Lymphocytes 47.6 % (21.0-51.0); %Monocytes 8.5 % (0.0-10.0); %Neutrophils 40.8 % (42.0-75.0); Hemoglobin 13.3 g/dL (12.0-16.0); Mean Corpuscular HGB CONC 32.1 g/dL (32.0-36.0); Mean Corpuscular Volume 93.6 fL (78.0-98.0); Mean Platelet Volume 7.9 fL (7.4-10.4); Platelet Count 294 thou/uL (130-400); RBC Distribution Width 12.6 % (11.5-14.5); Red Blood Cell (RBC) Count 4.45 mill/uL (4.20-5.40); White Blood Cell (WBC) Count 9.2 thou/uL (4.8-10.8)
[2018-11-11 23:21] LABS: Bilirubin Negative (Negative); Blood, Urine Negative (Negative); Clarity CLEAR (Clear); Glucose, Urine (Dipstick) Negative (Negative); Leukocyte Large (Negative); Nitrite Negative (Negative); Protein, Urine (Dipstick) Negative (Neg-Trace); Specific Gravity, Urine 1.005 (1.002-1.036); Urobilinogen 0.2 mg/dL (0.2-1.0); pH, Urine 6.5 (5.0-9.0)
[2018-11-11 23:23] LABS: Bacteria/HPF None Seen HPF (None Seen); Hyaline Casts/LPF 4-6 HYALINE CAST LPF (0-3 Hyaline); Pathc Cast-AUWi Flag 1.01 (0-2.49); RBC/HPF 0-3 HPF (0-3); Squamous Epithelial 0-3 HPF (0-3); WBC/HPF 21-50 HPF (0-3)
[2018-11-11 23:33] LABS: ALT (SGPT) 14 U/L (8-55); AST (SGOT) 19 U/L (5-34); Albumin 4.4 g/dL (3.4-4.8); Alkaline Phosphatase 84 U/L (40-150); Anion Gap 15 mmol/L (10-20); BUN (Urea Nitrogen) 18 mg/dL (9.8-20.1); Bilirubin, Total 0.5 mg/dL (0.2-1.2); Calc. Creatinine Clearance 0 mL/min (70-130); Calcium 9.9 mg/dL (7.8-10.44); Carbon Dioxide 26 mmol/L (23-31); Chloride 104 mmol/L (98-107); Estimated GFR-MDRD 66; Globulin 3.6 g/dL (2.4-3.5); Glucose 105 mg/dL (83-110); Magnesium 2.2 mg/dL (1.6-2.6); Sodium 141 mmol/L (136-145)
== END 2018-11-12 01:47 | disposition home or self-care (01) ==
LOC: ERS 22:31
DX: N39.0 Urinary tract infection, site not specified (principal); R42 Dizziness and giddiness; E03.9 Hypothyroidism, unspecified; I10 Essential (primary) hypertension; Z87.891 Personal history of nicotine dependence; Z79.899 Other long term (current) drug therapy; Z79.82 Long term (current) use of aspirin
CPT/HCPCS: 36415; 80053; 81003; 81015; 83735; 84484; 85025; 87086; 93005

== ENCOUNTER 2018-11-26 13:07 | Emergency (ER) | payer MEDICARE ==
[2018-11-26 14:28] LABS: #Basophils 0.2 thou/uL (0.0-0.2); #Eosinphils 0.2 thou/uL (0.0-0.7); #Lymphocytes 2.5 thou/uL (1.20-3.40); #Monocytes 0.8 thou/uL (0.11-0.59); #Neutrophils 5.5 thou/uL (1.40-6.50); %Basophils 1.6 % (0.0-1.0); %Lymphocytes 27.7 % (21.0-51.0); %Monocytes 8.5 % (0.0-10.0); %Neutrophils 60.2 % (42.0-75.0); Hemoglobin 12.3 g/dL (12.0-16.0); Mean Corpuscular HGB CONC 31.4 g/dL (32.0-36.0); Mean Corpuscular Hemoglobin 28.8 pg (27.0-31.0); Mean Corpuscular Volume 91.6 fL (78.0-98.0); Mean Platelet Volume 7.6 fL (7.4-10.4); Platelet Count 300 thou/uL (130-400); RBC Distribution Width 12.2 % (11.5-14.5); Red Blood Cell (RBC) Count 4.28 mill/uL (4.20-5.40); White Blood Cell (WBC) Count 9.2 thou/uL (4.8-10.8)
[2018-11-26 14:50] LABS: ALT (SGPT) 12 U/L (8-55); AST (SGOT) 18 U/L (5-34); Albumin 3.8 g/dL (3.4-4.8); Alkaline Phosphatase 84 U/L (40-150); Anion Gap 15 mmol/L (10-20); BUN (Urea Nitrogen) 11 mg/dL (9.8-20.1); Bilirubin, Total 0.6 mg/dL (0.2-1.2); Calc. Creatinine Clearance 0 mL/min (70-130); Calcium 9.5 mg/dL (7.8-10.44); Carbon Dioxide 24 mmol/L (23-31); Chloride 105 mmol/L (98-107); Estimated GFR-MDRD 75; Globulin 3.6 g/dL (2.4-3.5); Glucose 97 mg/dL (83-110); Potassium 3.7 mmol/L (3.5-5.1); Protein, Total 7.4 g/dL (6.0-8.3); Sodium 140 mmol/L (136-145)
--- NOTE | 2018-11-26 15:21 | RAD ---
CHEST 1 VIEW: Date: 11/26/18 COMPARISON: 12/27/17. FINDINGS: Heart size appears slightly enlarged. Aorta is tortuous. Lungs show chronic change. IMPRESSION: No active intrathoracic disease. Stable chest. POS: [facility]
== END 2018-11-26 16:57 | disposition home or self-care (01) ==
LOC: ERS 13:07
DX: J06.9 Acute upper respiratory infection, unspecified (principal); E03.9 Hypothyroidism, unspecified; E78.00 Pure hypercholesterolemia, unspecified; I10 Essential (primary) hypertension; Z87.891 Personal history of nicotine dependence; Z79.899 Other long term (current) drug therapy; Z79.82 Long term (current) use of aspirin
CPT/HCPCS: 36415; 71045; 80053; 85025; 93005; 94640; 94760; J7620

== ENCOUNTER 2019-01-09 08:44 | Outpatient (CLI) | payer MEDICARE ==
--- NOTE | 2019-01-09 10:44 | RAD ---
PA AND LATERAL VIEWS CHEST: HISTORY: Shortness of breath. FINDINGS: Comparison is made with the exam of 11/26/2018. The heart size is borderline. There is evidence of old granulomatous disease. The aorta is tortuous . The lungs are expanded without focal areas of consolidation, pneumothoraces, or pleural effusions. There are degenerative changes in the spine. IMPRESSION: Stable exam. No acute process. POS: [facility]
== END 2019-01-09 08:45 | disposition home or self-care (01) ==
LOC: RAD 08:44
PROVIDERS: ATTEND Psychiatry & Neurology Psychiatry
DX: R06.02 Shortness of breath (principal)
CPT/HCPCS: 71046

== ENCOUNTER 2019-01-31 08:09 | Outpatient (CLI) | payer MEDICARE ==
--- NOTE | 2019-01-31 09:12 | CT ---
CT Chest W Con History: [Carotid artery occlusion and stenosis] Comparison: Chest radiograph January 09, 2019. CT examination 2018 Findings: Within the peripheral aspect of right upper lobe is a patchy airspace opacity with adjacent centrilobular pulmonary nodules. Mild scarring the lung bases. Punctate peripheral pleural plaque posterior aspect right pleura basila r. Calcified perifacial lymph node inferior left major fissure. Low-grade paraseptal emphysema. Low-grade centrilobular emphysema. There is a groundglass nodule within the lingula measuring 7 mm. No pneumothorax. No effusion. Nodule within the anterior aspect left upper lobe that previously measured 2 x 1.4 cm is no longer vi sualized. 7 mm right upper lobe pulmonary nodule is no longer visualize and only a small focus of adjacent scarring remains. No new suspicious pulmonary nodule. No mediastinal adenopathy. No pericardial effusion. Limited evaluation of the upper abdomen is unrema rkable. Aortic contour is nonaneurysmal. No acute displaced rib fracture. Impression: 1. Relative to the CT examination one year prior the nodule in the left upper lobe has resolved. No n ew suspicious pulmonary nodules. 2. Mild emphysema.
== END 2019-01-31 08:10 | disposition home or self-care (01) ==
LOC: CT 08:09
PROVIDERS: ATTEND Thoracic Surgery (Cardiothoracic Vascular Surgery)
DX: I65.23 Occlusion and stenosis of bilateral carotid arteries (principal); J43.9 Emphysema, unspecified
CPT/HCPCS: 71260

== ENCOUNTER 2022-07-10 10:24 | Inpatient (IN) | payer MEDICARE ==
[2022-07-10] MEDS ORDERED: Ondansetron PF 4 MG/2 ML Vial ONE ×2 (10:57→14:05)
[2022-07-10] MEDS ORDERED: Morphine 4 MG/ML VIAL ONE (10:57)
[2022-07-10] MEDS ORDERED: Ondansetron PF 4 MG/2 ML Vial IVP PRN (11:42)
[2022-07-10] MEDS ORDERED: Morphine 2 MG/ML VIAL SLOW IVP PRN (11:42)
[2022-07-10] MEDS ORDERED: hydrALAZINE 20 MG/ML VIAL SLOW IVP PRN (11:42)
[2022-07-10] MEDS ORDERED: TETANUS, DIPHTHERIA TOX,ADULT (TDVAX) 0.5 ML VIAL IM ONE (11:42)
[2022-07-10] MEDS ORDERED: Sodium Chloride 0.9% 1,000 ML IV SCH (11:45)
[2022-07-10] MEDS ORDERED: traMADol HCl 50 MG TAB PO PRN (11:45)
[2022-07-10 11:50] LABS: Blood Culture - Extra Bottle RECEIVED; Blue RECEIVED; Gold RECEIVED; Green RECEIVED; Lavender RECEIVED; SST 8.5mL RECEIVED
[2022-07-10] MEDS ORDERED: Morphine 4 MG/ML VIAL SLOW IVP PRN ×2 (12:20→13:55)
[2022-07-10] MEDS ORDERED: CEFAZOLIN 2 GM VIAL ONE (13:11)
[2022-07-10] MEDS ORDERED: Sodium Chloride 0.9% 100 ML ONE (13:11)
[2022-07-10] MEDS ORDERED: fentaNYL Citrate/PF 100 MCG/2 ML SYRINGE ONE (13:34)
[2022-07-10 13:35] LABS: SARS-CoV-2 NAA Rapid Test Not Detected (NotDetected)
[2022-07-10] MEDS ORDERED: EPINEPHrine 1 MG/ML AMP ONE (13:36)
[2022-07-10] MEDS ORDERED: Neomycin-Polymyxin 1 ML AMP ONE (13:36)
[2022-07-10] MEDS ORDERED: Phenylephrine 10 MG/ML VIAL ONE (13:36)
[2022-07-10] MEDS ORDERED: Bupivacaine 0.25% HCL 30 ML VIAL ONE (13:36)
[2022-07-10] MEDS: traMADol HCl 50 MG TAB PO SCH ×2 (13:38→17:49)
[2022-07-10] MEDS ORDERED: HYDROcodone/Acetaminophen 10/325 mg Tablet PO PRN ×2 (13:55)
[2022-07-10] MEDS ORDERED: Communication Order-Pharmacy FS SCH (14:00)
[2022-07-10] MEDS ORDERED: PHENYLEPHRINE-NS 100 MCG/ML 10 ML SYRINGE ONE (14:05)
[2022-07-10] MEDS ORDERED: Rocuronium Bromide 10 MG/ML (10ML VIAL) ONE (14:05)
[2022-07-10] MEDS ORDERED: PROPOFOL 200 MG/20 ML VIAL ONE (14:05)
[2022-07-10] MEDS ORDERED: Dexamethasone 20 MG/5 ML VIAL ONE (14:05)
[2022-07-10] MEDS ORDERED: Ondansetron HCl/PF 4 MG/2 ML Vial IVP PRN (14:43)
[2022-07-10] MEDS ORDERED: Promethazine HCl 25 MG/ML VIAL IM PRN (14:43)
[2022-07-10] MEDS ORDERED: Promethazine HCl 25 MG/ML VIAL IVPB PRN (14:43)
[2022-07-10] MEDS ORDERED: SUGAMMADEX SODIUM 200 MG/2 ML VIAL ONE (14:49)
[2022-07-10 16:51] LABS: #Lymphocytes 0.8 thou/uL (1.20-3.40); #Monocytes 0.5 thou/uL (0.11-0.59); #Neutrophils 17.5 thou/uL (1.40-6.50); %Basophils 0.2 % (0.0-1.0); %Eosinophils 0.1 % (0.0-10.0); %Lymphocytes 4.2 % (21.0-51.0); %Monocytes 2.7 % (0.0-10.0); %Neutrophils 92.8 % (42.0-75.0); Hemoglobin 8.8 g/dL (12.0-16.0); Mean Corpuscular HGB CONC 30.7 g/dL (32.0-36.0); Mean Corpuscular Hemoglobin 26.2 pg (27.0-31.0); Mean Corpuscular Volume 85.3 fL (78.0-98.0); Mean Platelet Volume 7.8 fL (7.4-10.4); Platelet Count 324 thou/uL (130-400); Red Blood Cell (RBC) Count 3.38 mill/uL (4.20-5.40); White Blood Cell (WBC) Count 18.8 thou/uL (4.8-10.8)
[2022-07-10 17:10] LABS: Anion Gap 15 mmol/L (10-20); BUN (Urea Nitrogen) 15 mg/dL (9.8-20.1); Calc. Creatinine Clearance 0 mL/min (70-130); Calcium 8.5 mg/dL (7.8-10.44); Carbon Dioxide 23 mmol/L (23-31); Chloride 103 mmol/L (98-107); Estimated GFR 58; Glucose 143 mg/dL (83-110); Magnesium 1.9 mg/dL (1.6-2.6); Phosphorus 3.3 mg/dL (2.3-4.7); Potassium 3.8 mmol/L (3.5-5.1); Sodium 137 mmol/L (136-145)
[2022-07-10] MEDS: Acetaminophen 500 MG TAB PO SCH (17:48)
[2022-07-10] MEDS ORDERED: Boostrix 0.5 ML (Tdap) VIAL (>/=7 yrs of age) IM ONE (18:00)
[2022-07-10 20:26] LABS: Bacteria/HPF None Seen HPF (None Seen); Bilirubin Negative (Negative); Blood, Urine 2+ (Negative); Clarity Clear (Clear); Glucose, Urine (Dipstick) Normal (Negative); Ketone, Urine 40 mg/dL (Negative); Leukocyte Negative Leu/uL (Negative); Nitrite Negative (Negative); Protein, Urine (Dipstick) 50 mg/dL (Neg-Trace); Specific Gravity, Urine 1.026 (1.002-1.036); Squamous Epithelial 0-3 HPF (0-3); Urobilinogen Normal mg/dL (Less than 2); WBC/HPF 0-3 HPF (0-3)
[2022-07-10 20:27] LABS: Urine Culture Reflex No No
[2022-07-10] MEDS ORDERED: Famotidine/PF 20 mg/2ml Vial SLOW IVP SCH (21:00)
[2022-07-10] MEDS: Metoprolol Tartrate 25 MG TAB PO SCH (21:50)
[2022-07-10] MEDS: CEFAZOLIN 2 GM in Sodium Chloride 0.9% 100 ML IVPB SCH (21:50)
[2022-07-10] MEDS: Aspirin 81 mg Enteric Coated Tablet PO SCH (21:50)
[2022-07-10] MEDS: Senokot S 8.6-50 MG TAB PO SCH (21:59)
[2022-07-11] MEDS: Acetaminophen 500 MG TAB PO SCH ×4 (00:42→18:18)
[2022-07-11] MEDS: traMADol HCl 50 MG TAB PO SCH ×4 (00:43→18:18)
[2022-07-11] MEDS: CEFAZOLIN 2 GM in Sodium Chloride 0.9% 100 ML IVPB SCH (04:19)
[2022-07-11] MEDS: Levothyroxine 150 MCG TAB PO SCH (05:06)
[2022-07-11 06:17] LABS: #Lymphocytes 1.3 thou/uL (1.20-3.40); #Monocytes 0.7 thou/uL (0.11-0.59); #Neutrophils 7.4 thou/uL (1.40-6.50); %Basophils 0.1 % (0.0-1.0); %Eosinophils 0.1 % (0.0-10.0); %Lymphocytes 13.5 % (21.0-51.0); %Monocytes 7.3 % (0.0-10.0); %Neutrophils 79.1 % (42.0-75.0); Hemoglobin 7.4 g/dL (12.0-16.0); Mean Corpuscular HGB CONC 30.4 g/dL (32.0-36.0); Mean Corpuscular Hemoglobin 25.9 pg (27.0-31.0); Mean Corpuscular Volume 85.1 fL (78.0-98.0); Mean Platelet Volume 8.1 fL (7.4-10.4); Platelet Count 288 thou/uL (130-400); RBC Distribution Width 12.9 % (11.5-14.5); Red Blood Cell (RBC) Count 2.87 mill/uL (4.20-5.40); White Blood Cell (WBC) Count 9.3 thou/uL (4.8-10.8)
[2022-07-11 06:40] LABS: Anion Gap 10 mmol/L (10-20); BUN (Urea Nitrogen) 16 mg/dL (9.8-20.1); Calc. Creatinine Clearance 0 mL/min (70-130); Calcium 8.5 mg/dL (7.8-10.44); Carbon Dioxide 26 mmol/L (23-31); Chloride 105 mmol/L (98-107); Estimated GFR 48; Glucose 124 mg/dL (83-110); Magnesium 1.9 mg/dL (1.6-2.6); Potassium 4.1 mmol/L (3.5-5.1); Sodium 137 mmol/L (136-145)
[2022-07-11 06:45] LABS: Phosphorus 3.9 mg/dL (2.3-4.7)
[2022-07-11] MEDS ORDERED: Sodium Chloride 0.9% 500 ML IV SCH ×3 (07:45→20:00)
[2022-07-11] MEDS ORDERED: FLU VACC QS2022-23(65YR UP)/PF 240 MCG/0.7 ML SYRINGE IM ONE (09:00)
[2022-07-11] MEDS ORDERED: Famotidine/PF 20 mg/2ml Vial SLOW IVP SCH (09:00)
[2022-07-11] MEDS: Ascorbic Acid 500 mg Chewable Tablet PO SCH (09:30)
[2022-07-11] MEDS: Senokot S 8.6-50 MG TAB PO SCH ×2 (09:31→22:41)
[2022-07-11] MEDS: Metoprolol Tartrate 25 MG TAB PO SCH ×2 (09:31→22:42)
[2022-07-11] MEDS: Aspirin 81 mg Enteric Coated Tablet PO SCH ×2 (09:31→22:41)
[2022-07-11] MEDS: Ferrous Sulfate 325 MG TAB PO SCH (09:31)
[2022-07-11] MEDS: Polyethylene Glycol 3350 17 GM Packet PO SCH (09:31)
[2022-07-11 13:20] VITALS: BMI 36.7
[2022-07-11] MEDS ORDERED: Sodium Chloride 0.9% 1,000 ML IV SCH (18:45)
[2022-07-12] MEDS: Acetaminophen 500 MG TAB PO SCH ×4 (01:54→17:36)
[2022-07-12] MEDS: traMADol HCl 50 MG TAB PO SCH ×5 (01:55→17:36)
[2022-07-12] MEDS: Sodium Chloride 0.9% 1,000 ML IV SCH ×2 (04:20→06:14)
[2022-07-12] MEDS: Levothyroxine 150 MCG TAB PO SCH (05:09)
[2022-07-12 05:46] LABS: #Eosinphils 0.1 thou/uL (0.0-0.7); #Lymphocytes 1.8 thou/uL (1.20-3.40); #Monocytes 0.8 thou/uL (0.11-0.59); #Neutrophils 7.5 thou/uL (1.40-6.50); %Basophils 0.3 % (0.0-1.0); %Eosinophils 1.2 % (0.0-10.0); %Lymphocytes 17.4 % (21.0-51.0); %Monocytes 8.1 % (0.0-10.0); Hemoglobin 8.9 g/dL (12.0-16.0); Mean Corpuscular HGB CONC 30.8 g/dL (32.0-36.0); Mean Corpuscular Hemoglobin 26.4 pg (27.0-31.0); Mean Corpuscular Volume 85.5 fl (78.0-98.0); Mean Platelet Volume 8.5 fL (7.4-10.4); Platelet Count 239 thou/uL (130-400); RBC Distribution Width 12.9 % (11.5-14.5); Red Blood Cell (RBC) Count 3.37 mill/uL (4.20-5.40); White Blood Cell (WBC) Count 10.3 thou/uL (4.8-10.8)
[2022-07-12 06:27] LABS: Anion Gap 10 mmol/L (10-20); BUN (Urea Nitrogen) 18 mg/dL (9.8-20.1); Calc. Creatinine Clearance 54 mL/min (70-130); Calcium 8.5 mg/dL (7.8-10.44); Carbon Dioxide 25 mmol/L (23-31); Chloride 106 mmol/L (98-107); Estimated GFR 56; Glucose 93 mg/dL (83-110); Magnesium 1.9 mg/dL (1.6-2.6); Phosphorus 2.8 mg/dL (2.3-4.7); Sodium 137 mmol/L (136-145)
[2022-07-12] MEDS: Famotidine 20 MG TAB PO SCH (08:31)
[2022-07-12] MEDS: Aspirin 81 mg Enteric Coated Tablet PO SCH ×2 (08:31→22:11)
[2022-07-12] MEDS: Ascorbic Acid 500 mg Chewable Tablet PO SCH (08:31)
[2022-07-12] MEDS: Metoprolol Tartrate 25 MG TAB PO SCH ×2 (08:31→22:10)
[2022-07-12] MEDS: Senokot S 8.6-50 MG TAB PO SCH ×2 (08:31→22:10)
[2022-07-12] MEDS: Polyethylene Glycol 3350 17 GM Packet PO SCH (08:32)
[2022-07-12] MEDS: Ferrous Sulfate 325 MG TAB PO SCH (08:32)
[2022-07-13] MEDS: Acetaminophen 500 MG TAB PO SCH ×3 (00:16→11:38)
[2022-07-13] MEDS: traMADol HCl 50 MG TAB PO SCH ×3 (00:16→12:31)
[2022-07-13] MEDS: Levothyroxine 150 MCG TAB PO SCH (06:56)
[2022-07-13] MEDS ORDERED: Sodium Chloride 0.9% 500 ML IV SCH (07:15)
[2022-07-13] MEDS ORDERED: Ferrous Sulfate 325 MG TAB PO SCH (08:00)
[2022-07-13] MEDS: Metoprolol Tartrate 25 MG TAB PO SCH (09:00)
[2022-07-13] MEDS ORDERED: Ascorbic Acid 500 mg Chewable Tablet PO SCH (09:00)
[2022-07-13] MEDS: Polyethylene Glycol 3350 17 GM Packet PO SCH (09:00)
[2022-07-13] MEDS: Senokot S 8.6-50 MG TAB PO SCH (09:00)
[2022-07-13] MEDS: Famotidine 20 MG TAB PO SCH (09:00)
[2022-07-13] MEDS: Aspirin 81 mg Enteric Coated Tablet PO SCH (09:00)
[2022-07-13 13:38] VITALS: BP 91/59; TEMP 97.9
== END 2022-07-13 14:13 | DRG 470 ==
LOC: ERS 10:24 → SURG A 12:55
PROVIDERS: ADMIT Specialist; ATTEND Specialist
PROC: 0SRD0J9 Replacement of Left Knee Joint with Synthetic Substitute, Cemented, Open Approach (ICD-10-PCS; principal; 2022-07-10)
DX: S72.002A Fracture of unspecified part of neck of left femur, initial encounter for closed fracture (principal); Z66 Do not resuscitate; Z20.822 Contact with and (suspected) exposure to COVID-19; E03.9 Hypothyroidism, unspecified; E78.00 Pure hypercholesterolemia, unspecified; I10 Essential (primary) hypertension; H54.8 Legal blindness, as defined in USA; Z90.49 Acquired absence of other specified parts of digestive tract; Z98.42 Cataract extraction status, left eye; Z98.41 Cataract extraction status, right eye; Z87.891 Personal history of nicotine dependence; Z79.899 Other long term (current) drug therapy; Z79.82 Long term (current) use of aspirin
CPT/HCPCS: 36415; 36430; 70450; 72125; 80048; 81001; 83735; 83880; 84100; 85025; 86850; 86870; 86900; 86901; 86921; 93005; 96374; 96375; C1713; C1776; G0390; J0171; J0690; J1100; J2270; J2370; J2405; J2704; J3490; J7030; J7050; P9016; S0020; S0028; U0002